=== PATIENT | female | born 1975 | race Caucasian/White ===

== ENCOUNTER 2018-03-26 21:03 | Emergency (ER) | payer OTHER ==
--- NOTE | 2018-03-26 21:44 | RAD ---
RIGHT FOOT: 03/26/18 Three views. HISTORY: Fall with injury and pain to foot. Small enthesophyte from the plantar calcaneus. Tarsals appear unremarkable. Metatarsals and phalanges appear intact. The middle phalanx of the second toe is obscured by metallic ring artifact. IMPRESSION: No acute fracture identified. POS: [facility]
--- NOTE | 2018-03-26 22:06 | RAD ---
RIGHT ANKLE THREE VIEWS: 03/26/18 HISTORY: 42-year-old female with right ankle pain following a twisting injury. There is some lateral soft tissue swelling. There is a question of a tiny chip type fracture of the d istal tip of the fibula which could represent a tiny avulsion fracture. Minimal degenerative changes are noted involving the medial tibiotalar joint. IMPRESSION: Lateral soft tissue swelling. Questionable tiny chip type or avulsion type fracture off the distal fi bula. Degenerative changes of the ankle and hindfoot. POS: [facility]
--- NOTE | 2018-03-26 22:07 | RAD ---
RIGHT WRIST THREE VIEWS: 03/26/18 HISTORY: 42-year-old female with right wrist pain. No acute fracture or dislocation. Mild degenerative changes. IMPRESSION: Mild degenerative changes without fracture or dislocation. POS: [facility]
[2018-03-26] MEDS ORDERED: HYDROcodone/Acetaminophen 10/325 mg Tablet ONE (22:30)
[2018-03-26] MEDS ORDERED: Naproxen 500 MG TAB ONE (22:30)
== END 2018-03-26 22:45 | disposition home or self-care (01) ==
LOC: MADERS 21:03
DX: S93.401A Sprain of unspecified ligament of right ankle, initial encounter (principal); X50.1XXA Overexertion from prolonged static or awkward postures, initial encounter